=== PATIENT | female | born 1985 | race Caucasian/White ===

== ENCOUNTER 2017-01-09 20:35 | Emergency (ER) | payer OTHER ==
[~2017-01-09] VITALS: Ht 154.9 cm; Wt 69.5 kg
[~2017-01-09 20:35] MED LIST: PANT40TA3 PO; ZOF8 PO
[2017-01-09 21:10] VITALS: Ht 154.9 cm; Wt 69.5 kg
--- NOTE | 2017-01-09 21:46 | ERD ---
ER Documentation Chief Complaint Date/Time DATE: 01/09/17 TIME: 21:40 Chief Complaint itchy rash all over body, and kids at home has the same problem HPI This 31-year-old female presents to emergency department with pruritic rash that started 2 weeks ago . pt just released from prison . States she is concerned that her children are going to catch the rash states her also has similar symptoms. ROS All systems reviewed and are negative except as per history of present illness. Medications Home Meds Active Scripts Betamethasone Dipropionate* (Betamethasone Dipropionate*) 0.05% - 15 Gm Oint, 1 APPLIC TOP BID for 14 Days, TUB APPLY TO: Prov:LAZARO,SURYA 01/09/17 Diphenhydramine Hcl* (Benadryl*) 50 Mg Cap, 50 MG PO Q6 Y for PRURITUS, #30 CAP Prov:LAZARO,SURYA 01/09/17 Permethrin (Permethrin) 120 Ml Liquid, 120 ML TP ONCE, #2 Prov:LAZARO,SURYA 01/09/17 Pantoprazole* (Protonix*) 40 Mg Tablet.dr, 40 MG PO DAILY, #30 TAB Prov:RAPHAEL MAGAÑA MD 11/11/15 Pantoprazole* (Protonix*) 40 Mg Tablet.dr, 40 MG PO DAILY, #20 TAB Prov:RAPHAEL MAGAÑA MD 11/02/15 Ondansetron Hcl* (Zofran* ODT) 8 mg -ODT Tab.disper, 8 MG PO Q6 Y for NAUSEA AND /OR VOMITING, #10 TAB Prov:FADY ROYAL MD 10/25/15 Allergies Allergies: Coded Allergies: No Known Allergy (Unverified , 11/08/15) PMhx/Soc History of Surgery: Yes (cholecystectomy 10/31/15) Anesthesia Reaction: No Hx Neurological Disorder: No Hx Respiratory Disorders: No Hx Cardiac Disorders: No Hx Psychiatric Problems: No Hx Miscellaneous Medical Probl: Yes (gallstones) Hx Alcohol Use: Yes (rarely) Hx Substance Use: Yes (marijuana) Hx Tobacco Use: No (smokes marijuana) Smoking Status: Never smoker Physical Exam Vitals Vital Signs Date Time Temp Pulse Resp B/P Pulse Ox O2 Delivery O2 Flow Rate FiO2 01/09/17 21:10 98.9 71 20 147/71 99 Vitals stable, triage notes reviewed Physical Exam Const: Well-nourished well-hydrated no acute distress obvious discomfort Head: Eyes: ENT: Neck: Resp: Cardio: Abd: Soft, non tender, non distended. Nontender to palpation Skin: Papular erythemic rash on abdomen waistband thighs in between fingers, on arms chest and buttocks cleft patient has ecchymosis secondary to scratching , skin intact without evidence of infection Back: Ext: Neur: Awake and alert Psych: Normal Mood and Affect Results 24 hrs Current Medications Medications (Trade) Dose Ordered Sig/Yao Route PRN Reason Start Time Stop Time Status Last Admin Dose Admin Methylprednisolone Sodium Succinate (Solu-Medrol) 40 mg ONCE ONCE IM 01/09/17 22:00 01/09/17 22:01 DC 01/09/17 21:57 Diphenhydramine HCl (Benadryl) 25 mg ONCE ONCE IM 01/09/17 22:00 01/09/17 22:01 DC 01/09/17 21:58 Procedures/MDM This 31-year-old female presents to emergency department for a pruritic rash. Patient reports that rash started with her first and has transferred to her. Patient reports her has just been released from assisted. She has tried no [id number] medication for symptomatic relief, denies history of rashes. I have low suspicion for Gildardo Milton syndrome, chickenpox, cellulitis. Patient's treatment includes Benadryl while in emergency department plan to discharge patient home with Elimite applied to neck to toes before going to sleep allowed to stay on skin for 10 hours then rinse off wash all close sheets and items that have come in skin contact in hot water teaching handout is provided. Patient given refill to repeat an 10 days if symptoms fail to improve patient was told has been needs to be evaluated and treated for suspected infestation. Return to emergency department if symptoms fail to improve as anticipated follow-up with primary care physician for treatment reevaluation. Patient is stable with no new complaints during ER course, clinically there is no current evidence to suggest meningitis, sepsis, acute abdomen, acute coronary syndromes, pulmonary embolism or any other emergent condition appearing to require further evaluation or hospitalization. I feel the patient is stable for discharge at this time. I have discussed results, examination findings, the treatment plan with the patient and family present prior to discharge. Indications for emergent reevaluation, side effects of medication were also discussed. All questions were answered. Patient verbalizes understanding and agrees with plan of care. Departure Diagnosis: Primary Impression: Rash and other nonspecific skin eruption Condition: Good Patient Instructions: Scabies, Self-Care for Skin Rashes Referrals: [facility] Additional Instructions: Thank you for for coming to [facility] for your care today. Please ask your nurse or provider if you have questions about your care today and do not leave until all your questions have been answered. Please use any medications given as directed and follow-up with your doctor (or the doctor you were referred to) in the next 2-3 days. If you do not have a primary care doctor you may follow up at the [facility] (listed below). You may also use motrin and tylenol as needed for fever and/or pain unless instructed otherwise by your provider or nurse. Indications for more urgent follow-up have been discussed, but you may return to the Emergency Department at ANY time for any worrisome or worsening symptoms. If you have abdominal pain, please know that no test or exam you received is perfect and you should follow up within 8 hours for continued pain. If you had any imaging studies today, such as an X-Ray or CT Scan, these studies will be reviewed later by a radiologist. You will be called if there are important findings that were not identified today, so make sure the contact information you provided at registration is correct. If you received any narcotic pain control medicine today, such as Vicodin, Morphine or Dilaudid, your coordination and judgment may be affected for a number of hours. Please do not drive or operate heavy machinery, and you may want someone to assist you at home. If you were given a prescription for narcotic medication, be aware that it is very addictive- use sparingly and only if necessary. SURYA WILLIS Jan 09, 2017 21:45
[2017-01-09] MEDS ORDERED: DIPHENHYDRAMINE 50 MG INJ IM ONE (22:00)
[2017-01-09] MEDS ORDERED: METHYLPREDNISOLONE 40 MG INJ IM ONE (22:00)
[2017-01-09] MEDS ORDERED: PERM120L5 TP (23:02)
[2017-01-09] MEDS ORDERED: BEN50 PO (23:03)
[2017-01-09] MEDS ORDERED: BTM.05O15 TOP (23:06)
== END 2017-01-09 23:10 | disposition home or self-care (01) ==
LOC: FTE 20:35
DX: R21 Rash and other nonspecific skin eruption (principal)
CPT/HCPCS: 96372; J1200; J2920; Z7502

== ENCOUNTER 2017-02-10 22:21 | Emergency (ER) | payer OTHER ==
[~2017-02-10] VITALS: Ht 154.9 cm; Wt 69.0 kg
[~2017-02-10 22:21] MED LIST changes: +BEN50 PO; +BTM.05O15 TOP; +ELIM TOP; +HYDR-3011 PO; +PERM120L5 TP
[2017-02-10 22:38] VITALS: Ht 154.9 cm; Wt 69.0 kg
--- NOTE | 2017-02-11 02:35 | ERD ---
ER Documentation Chief Complaint Date/Time DATE: 02/11/17 TIME: 02:33 Chief Complaint cough/sore throat/body aches x 1 week HPI 31-year-old female presents here in emergency department for multiple complaints. Patient is complaining of cough, sore throat, body aches for 1 week. Patient has been having dry cough, does not cough up any phlegm or blood. Patient has episodes of shortness of breath and wheezing at times. Patient has been having runny nose nasal congestion with clear nasal discharge. Patient does not have any fever or chills. Patient also is complaining of lower abdominal pain cramping pain, 4/10 scale, patient recently knew that she was 2-3 days ago. Last menstrual period was 1 month ago, unknown date. Patient denies any vaginal bleeding. Patient denies any hematuria or dysuria. ROS All systems reviewed and are negative except as per history of present illness. Medications Home Meds Active Scripts Albuterol Sulfate* (Proair HFA*) 8.5 Gm Hfa.aer.ad, 2 PUFF INH Q4H Y for WHEEZING AND SOB, #1 INHALER Prov:RAVIN SALAZAR NP 02/11/17 Cetirizine Hcl* (Zyrtec*) 10 Mg Capsule, 10 MG PO DAILY, #30 TAB.CHEW Prov:RAVIN SALAZAR NP 02/11/17 Acetaminophen* (Tylophen*) 500 Mg Capsule, 1 CAP PO Q6H Y for PAIN AND OR ELEVATED TEMP, #20 CAP Prov:RAVIN SALAZAR NP 02/11/17 Permethrin* (Elimite*) 5% Cr, 1 APPLIC TOP ONCE for 7 Days, TUB apply neck down and keep on for 8-12 hrs, rinse off afterwards Prov:RAVIN SALAZAR NP 02/05/17 Hydroxyzine Hcl* (Hydroxyzine Hcl*) 25 Mg Tablet, 25 MG PO Q8H Y for ITCHING, # 30 TAB Prov:RAVIN SALAZAR NP 02/05/17 Betamethasone Dipropionate* (Betamethasone Dipropionate*) 0.05% - 15 Gm Oint, 1 APPLIC TOP BID for 14 Days, TUB APPLY TO: Prov:LAZARO,SURYA 01/09/17 Diphenhydramine Hcl* (Benadryl*) 50 Mg Cap, 50 MG PO Q6 Y for PRURITUS, #30 CAP Prov:LAZARO,SURYA 01/09/17 Permethrin (Permethrin) 120 Ml Liquid, 120 ML TP ONCE, #2 Prov:LAZARO,SURYA 01/09/17 Pantoprazole* (Protonix*) 40 Mg Tablet., 40 MG PO DAILY, #30 TAB Prov:RAPHAEL MAGAÑA MD 11/11/15 Pantoprazole* (Protonix*) 40 Mg Tablet.dr, 40 MG PO DAILY, #20 TAB Prov:RAPHAEL MAGAÑA MD 11/02/15 Ondansetron Hcl* (Zofran* ODT) 8 mg -ODT Tab.disper, 8 MG PO Q6 Y for NAUSEA AND /OR VOMITING, #10 TAB Prov:FADY ROYAL MD 10/25/15 Allergies Allergies: Coded Allergies: No Known Allergy (Unverified , 02/10/17) PMhx/Soc History of Surgery: Yes (Cholecystectomy w/stent 10/31/15,) Anesthesia Reaction: No Hx Neurological Disorder: No Hx Respiratory Disorders: No Hx Cardiac Disorders: No Hx Psychiatric Problems: No Hx Miscellaneous Medical Probl: Yes (Gallstones) Hx Alcohol Use: Yes (Socially) Hx Substance Use: Yes (marijuana) Hx Tobacco Use: No (smokes marijuana,cigarettes) Smoking Status: Current every day smoker FmHx Family History: No coronary disease, No diabetes, No other Physical Exam Vitals Vital Signs Date Time Temp Pulse Resp B/P Pulse Ox O2 Delivery O2 Flow Rate FiO2 02/10/17 22:38 98.8 94 20 120/68 99 Physical Exam GENERAL: The patient is well developed and appropriate for usual state of health, in no apparent distress. CHEST: Clear to auscultation bilaterally. There are no rales, wheezes or rhonchi. HEART: Regular rate and rhythm. No murmurs, clicks, rubs or gallops. No S3 or S4. ABDOMEN: Soft, nontender and nondistended. Good bowel sounds. No rebound or guarding. No gross peritonitis. No gross organomegaly or masses. No Walton sign or McBurney point tenderness. BACK: No midline or flank tenderness. EXTREMITIES: Equal pulses bilaterally. There is no peripheral clubbing, cyanosis or edema. No focal swelling or erythema. Full range of motion. Grossly neurovascularly intact. NEURO: Alert and oriented. Cranial nerves 2-12 intact. Motor strength in all 4 extremities with 5/5 strength. Sensation grossly intact. Normal speech and gait. SKIN: There is no apparent rash or petechia. The skin is warm and dry. HEMATOLOGIC AND LYMPHATIC: There is no evidence of excessive bruising or lymphedema. No gross cervical, axillary, or inguinal lymphadenopathy. Result Diagram: 02/11/17 0230 Results 24 hrs Laboratory Tests Test 02/11/17 02:30 White Blood Count 5.610^3/ul Red Blood Count 4.3910^6/ul Hemoglobin 13.8g/dl Hematocrit 39.4% Mean Corpuscular Volume 89.7fl Mean Corpuscular Hemoglobin 31.4pg Mean Corpuscular Hemoglobin Concent 35.0g/dl Red Cell Distribution Width 12.3% Platelet Count 31550^3/UL Mean Platelet Volume 11.3fl Neutrophils % 48.8% Lymphocytes % 40.4% Monocytes % 6.8% Eosinophils % 3.2% Basophils % 0.4% Nucleated Red Blood Cells % 0.0/100WBC Neutrophils # 2.710^3/ul Lymphocytes # 2.310^3/ul Monocytes # 0.410^3/ul Eosinophils # 0.210^3/ul Basophils # 0.010^3/ul Nucleated Red Blood Cells # 0.010^3/ul Urine Color YELLOW Urine Clarity SLIGHTLY CLOUDY Urine pH 6.0 Urine Specific [place] 1.016 Urine Ketones NEGATIVEmg/dL Urine Nitrite NEGATIVEmg/dL Urine Bilirubin NEGATIVEmg/dL Urine Urobilinogen NEGATIVEmg/dL Urine Leukocyte Esterase 2+[place]/ul Urine Microscopic RBC 5/HPF Urine Microscopic WBC 18/HPF Urine Squamous Epithelial Cells FEW/HPF Urine Bacteria FEW/HPF Urine Mucus FEW/HPF Urine Hemoglobin NEGATIVEmg/dL Urine Glucose NEGATIVEmg/dL Urine Total Protein NEGATIVEmg/dl Beta HCG, Quantitative 99626.0mIU/ml Current Medications Medications (Trade) Dose Ordered Sig/Yao Route PRN Reason Start Time Stop Time Status Last Admin Dose Admin Ceftriaxone Sodium (Rocephin) 50 ml @ 100 mls/hr ONCE ONCE IVPB 02/11/17 05:00 02/11/17 05:29 UNV IV Rocephin was given here in emergency department for treatment of urinary tract infection. PROCEDURE: US OB. CLINICAL INDICATION: pelvic pain LMP 01/02/2017 TECHNIQUE: Transabdominal and transvaginal views of the pelvis are available for review. COMPARISON: 05/23/2015 FINDINGS: There is an intrauterine gestational sac . The mean sac diameter measures 1.55 cm. pole and yolk sac are visualized. [place]-rump length: 4.2 mm heart rate: 119 Ultrasound estimated gestational age: 6 weeks, 1 day. The RAVEN is 10/06/2017. The ovaries are not visualized. No adnexal mass lesion is seen. There is no free fluid. IMPRESSION: 1. Single live intrauterine with an estimated gestational age of 6 weeks, 1 day. Physician Diandra Date Time Electronically viewed and signed by Physician Diandra on 02/11/2017 03: 03 CS/ Procedures/MDM Medical Decision Making: Symptoms of lower abdominal pain most likely is consistent with urinary tract infection. No symptoms of pyelonephritis. Patient has a viable 6 weeks. No ectopic noted. No vaginal bleeding noted. No symptoms of any threatened . There is low suspicion for abdominal emergencies at this time. Patients abdominal exam is normal at this time. Patients radiology exam does not show any abdominal emergencies at this time. There is low suspicion for appendicitis, cholecystitis, abdominal aortic aneurysms or peritonitis at this time. There is low suspicion for sepsis. Patient appears well and is hemodynamically stable. Patient symptoms of cough runny nose nasal congestion wheezing most likely consistent with acute bronchitis, which viral in origin. There is low suspicion for Pneumonia at this time since patients lungs sounds are clear, patient O2 saturation is normal and patient doesnt show any respiratory distress. Radiology exams not indicated at this time. There is low suspicion for other cardiopulmonary emergencies at this time such as CHF, Pulmonary Embolism, Pneumothorax, Aortic Aneurysm or any other cardiopulmonary emergencies at this time. There is low suspicion for sepsis. Patient appears well and is hemodynamically stable. Disposition: Home. Condition: Stable Prescription Zyrtec, Tylenol, Keflex albuterol Instructions: Patient is advised to take medications as prescribed. Patient is advised to rest, increase fluid intake and do brat diet for next 1-2 days and progress as tolerated. Patient is advised that if symptoms are worse, severe abdominal pain, uncontrolled vomiting, high fever, severe flank pain, worst signs and symptoms, to return to the emergency department immediately. Otherwise, patient can follow up with primary care doctor in 5-7 days. Disclaimer: Inadvertent spelling and grammatical errors are likely due to EHR/ dictation software use and do not reflect on the overall quality of patient care. Also, please note that the electronic time recorded on this note does not necessarily reflect the actual time of the patient encounter. Departure Diagnosis: Primary Impression: Acute bronchitis Bronchitis organism: unspecified organism Qualified Code: J20.9 - Acute bronchitis, unspecified organism Additional Impressions: UTI (urinary tract infection) Urinary tract infection type: acute cystitis Hematuria presence: without hematuria Qualified Code: N30.00 - Acute cystitis without hematuria Intrauterine Condition: Stable Patient Instructions: Bronchitis With Wheezing (Adult), Understanding Urinary Tract Infections (UTIs) Additional Instructions: Patient is advised to take medications as prescribed. Patient is advised to rest , increase fluid intake and do brat diet for next 1-2 days and progress as tolerated. Patient is advised that if symptoms are worse, severe abdominal pain , uncontrolled vomiting, high fever, severe flank pain, worst signs and symptoms , to return to the emergency department immediately. Otherwise, patient can follow up with primary care doctor in 5-7 days. RAVIN SALAZAR NP Feb 11, 2017 02:35
[2017-02-11 03:01] LABS: BASOPHILS % 0.4 % (0.0-2.0); EOSINOPHILS # 0.2 10^3/ul (0.0-0.5); EOSINOPHILS % 3.2 % (0.0-7.0); HEMATOCRIT 39.4 % (37.0-47.0); HEMOGLOBIN 13.8 g/dl (12.0-16.0); LYMPHOCYTES # 2.3 10^3/ul (0.8-2.9); LYMPHOCYTES % 40.4 % (15.0-51.0); MEAN CORPUSCULAR HEMOGLOBIN 31.4 pg (29.0-33.0); MEAN CORPUSCULAR VOLUME 89.7 fl (82.0-101.0); MEAN PLATELET VOLUME 11.3 fl (7.4-10.4); MONOCYTE # 0.4 10^3/ul (0.3-0.9); MONOCYTES % 6.8 % (0.0-11.0); NEUTROPHIL # 2.7 10^3/ul (1.6-7.5); NEUTROPHILS % 48.8 % (39.0-77.0); PLATELET COUNT 202 10^3/UL (140-415); RED BLOOD COUNT 4.39 10^6/ul (4.20-5.40); RED CELL DISTRIBUTION WIDTH 12.3 % (11.5-14.5); WHITE BLOOD COUNT 5.6 10^3/ul (4.8-10.8)
--- NOTE | 2017-02-11 03:04 | RADRPT ---
PROCEDURE: US OB. CLINICAL INDICATION: pelvic pain LMP 01/02/2017 TECHNIQUE: Transabdominal and transvaginal views of the pelvis are available for review. COMPARISON: 05/23/2015 FINDINGS: There is an intrauterine gestational sac . The mean sac diameter measures 1.55 cm. pole and y olk sac are visualized. [place]-rump length:4.2 mm heart rate:119 Ultrasound estimated gestational age:6 weeks, 1 day. The RAVEN is 10/06/2017. The ovaries are not visualized. No adnexal mass lesion is seen. There is no free fluid. IMPRESSION: 1. Single live intrauterine with an estimated gestational age of 6 weeks, 1 day. Physician Diandra Date Time Electronically viewed and signed by Physician Diandra on 02/11/2017 03:03 CS/
[2017-02-11 03:40] LABS: ADD UMIC YES; UR ASCORBIC ACID NEGATIVE (NEGATIVE); UR BACTERIA FEW /HPF (NONE SEEN); UR BILIRUBIN (Dip) NEGATIVE (NEGATIVE); UR BLOOD (Dip) NEGATIVE (NEGATIVE); UR CLARITY SLIGHTLY CLOUDY (CLEAR); UR COLOR YELLOW (YELLOW); UR GLUCOSE (Dip) NEGATIVE (NEGATIVE); UR KETONES (Dip) NEGATIVE (NEGATIVE); UR LEUKOCYTE ESTERASE (Dip) 2+ Leu/ul (NEGATIVE); UR MUCUS FEW /HPF (NONE SEEN); UR NITRITE (Dip) NEGATIVE (NEGATIVE); UR RBC 5 /HPF (0-5); UR SPECIFIC GRAVITY (Dip) 1.016 (1.003-1.030); UR SQUAMOUS EPITHELIAL CELL FEW /HPF (FEW); UR TOTAL PROTEIN (Dip) NEGATIVE (NEGATIVE); UR UROBILINOGEN (Dip) NEGATIVE (NEGATIVE)
[2017-02-11] MEDS ORDERED: CEFTRIAXONE 1 GM/50 ML (PMX) 50 ML IVPB ONE (05:00)
[2017-02-11] MEDS ORDERED: ACET500C5 PO (05:03)
[2017-02-11] MEDS ORDERED: ALBU8.5H3 INH (05:03)
[2017-02-11] MEDS ORDERED: CETI10CA PO (05:03)
[2017-02-11 06:05] VITALS: BP 113/66; PULSE 67; RESP 18; TEMP 98.2
== END 2017-02-11 06:09 | disposition home or self-care (01) ==
LOC: FTE 22:21
DX: O99.511 Diseases of the respiratory system complicating pregnancy, first trimester (principal); J20.9 Acute bronchitis, unspecified; O23.41 Unspecified infection of urinary tract in pregnancy, first trimester; F17.210 Nicotine dependence, cigarettes, uncomplicated; O99.331 Smoking (tobacco) complicating pregnancy, first trimester; R10.2 Pelvic and perineal pain; Z3A.01 Less than 8 weeks gestation of pregnancy
CPT/HCPCS: 36415; 76801; 81001; 84702; 85025; 86900; 86901; 96374; J0696; Z7502

== ENCOUNTER 2017-07-01 17:40 | Emergency (ER) | END 2017-07-01 21:15 | disposition home or self-care (01) ==

== ENCOUNTER 2017-08-12 22:16 | Emergency (ER) | END 2017-08-13 00:59 | disposition home or self-care (01) ==

== ENCOUNTER 2018-04-28 13:55 | Emergency (ER) | END 2018-04-28 19:28 | disposition home or self-care (01) ==